=== PATIENT | male | born 1985 | race Caucasian/White ===

== ENCOUNTER 2018-07-11 11:04 | Emergency (ER) | payer OTHER ==
[~2018-07-11] VITALS: Ht 167.6 cm; Wt 90.3 kg
[2018-07-11 11:17] VITALS: BP 123/79; Ht 167.6 cm; Wt 90.3 kg
== END 2018-07-11 12:16 | disposition home or self-care (01) ==
LOC: ED 11:04
DX: J01.90 Acute sinusitis, unspecified (principal)